=== PATIENT | male | born 1990 | race Caucasian/White ===

== ENCOUNTER 2020-09-02 14:40 | Emergency (ER) | payer OTHER ==
[2020-09-02 14:48] VITALS: BP 133/83
--- NOTE | 2020-09-02 14:49 | ED Physician Documentation ---
PD HPI HEENT - Stated complaint Stated Complaint: OBJECT IN L EAR - Chief complaint Chief Complaint: Heent - History obtained from History obtained from: Patient - History of Present Illness Timing - onset: Today Timing - details: Abrupt onset (He was cleaning his ears with Q-tips and looked down afterward and saw the cotton part on the Q-tip was not present. He did not fully notice if it was there before that. Concern for foreign body in the ear canal. denies hearing deficit.) Location: Left ear Similar symptoms before: Has not had sx before Review of Systems Ears: denies: Loss of hearing, Ear pain, Drainage/discharge PD PAST MEDICAL HISTORY - Past Medical History HEENT: None - Present Medications Home Medications: Ambulatory Orders Medication Instructions Recorded Confirmed No Known Home Medications 09/02/20 09/02/20 - Allergies Allergies/Adverse Reactions: Allergies Allergy/AdvReac Type Severity Reaction Status Date / Time No Known Drug Allergies Allergy Verified 09/02/20 14:47 PD ED PE NORMAL - Vitals Vital signs reviewed: Yes - General General: Alert and oriented X 3, No acute distress, Well developed/nourished - HEENT HEENT: Ears normal (No foreign bodies seen on either ear canal. Eardrums are both intact without any erythema. No canal abrasions or abnormalities.), Moist mucous membranes Results - Vitals Vitals: Vital Signs - 24 hr 09/02/20 14:44 Temperature 36.7 C Heart Rate 73 Respiratory 16 Rate Blood Pressure 133/83 H O2 Saturation 99 Oxygen O2 Source Room air PD MEDICAL DECISION MAKING - ED course Complexity details: considered differential (no FB on exam), d/w patient Departure - Departure Disposition: 01 Home, Self Care Clinical Impression: No foreign body found on evaluation Condition: Stable Record reviewed to determine appropriate education?: Yes Comments: Nothing found in your ear canal on exam.
== END 2020-09-02 15:06 | disposition home or self-care (01) ==
LOC: ED 14:40
DX: Z03.89 Encounter for observation for other suspected diseases and conditions ruled out (principal)
CPT/HCPCS: 99281

== ENCOUNTER 2021-01-17 16:11 | Observation (INO) | payer OTHER ==
[2021-01-17 17:08] LABS: BASOPHILS % (AUTO) 0.4 %; EOSINOPHILS # (AUTO) 0.2 10^3/uL (0.0-0.7); HCT - HEMATOCRIT 41.4 % (42.0-52.0); HGB - HEMOGLOBIN 14.1 g/dL (14.0-18.0); MEAN CORPUSCULAR HEMOGLOBIN 30.1 pg (27.0-31.0); MEAN CORPUSCULAR HGB CONC 34.1 g/dL (32.0-36.0); MEAN CORPUSCULAR VOLUME 88.5 fL (80.0-94.0); MEAN PLATELET VOLUME 9.2 fL (7.4-11.4); MONOCYTES # (AUTO) 0.9 10^3/uL (0.0-1.0); MONOCYTES % (AUTO) 8.3 %; NEUTROPHILS # (AUTO) 7.9 10^3/uL (1.5-6.6); NEUTROPHILS % (AUTO) 70.9 %; PLT - PLATELET COUNT 247 10^3/uL (130-450); RED BLOOD COUNT 4.68 10^6/uL (4.70-6.10); RED CELL DISTRIBUTION WIDTH 11.9 % (12.0-15.0); WHITE BLOOD COUNT 11.2 x10^3/uL (4.8-10.8)
[2021-01-17 17:17] LABS: INR 1.3 (0.8-1.2); PT - PROTHROMBIN TIME 14.3 secs (9.9-12.6)
[2021-01-17 17:21] LABS: ALBUMIN 4.2 g/dL (3.2-5.5); ALBUMIN/GLOBULIN RATIO 1.1 (1.0-2.2); BILIRUBIN,TOTAL 1.4 mg/dL (0.2-1.0); CALCIUM 9.4 mg/dL (8.5-10.3); CREATININE 0.7 mg/dL (0.6-1.2); POTASSIUM 3.5 mmol/L (3.5-5.0); TOTAL PROTEIN 8.1 g/dL (6.7-8.2)
[2021-01-17 17:25] LABS: PARTIAL THROMBOPLASTIN TIME 30.1 secs (24.9-33.3)
--- NOTE | 2021-01-17 18:06 | ED Physician Documentation ---
History of Present Illness - Stated complaint Stated Complaint: CHILLS - Chief complaint Chief Complaint: Fever - History obtained from History obtained from: Patient - History of Present Illness Timing: Today Pain level max: 10 Pain level now: 10 - Additonal information Additional information: 30-year-old male presents to the emergency department with fever and right elbow pain. He was seen here earlier today and diagnosed with olecranon bursitis. This was incised and drained. When he returned home he started to develop fevers, body aches and chills. He states the pain is continually increasing to the right elbow as well. Denies any injury. Worse with movement, better with rest. Review of Systems Ten Systems: 10 systems reviewed and negative Constitutional: reports: Fever, Chills Respiratory: denies: Cough GI: denies: Nausea, Vomiting, Diarrhea Skin: denies: Rash Musculoskeletal: denies: Neck pain, Back pain Neurologic: denies: Headache PD PAST MEDICAL HISTORY - Past Medical History Past Medical History: Yes Cardiovascular: None Respiratory: None Neuro: None Endocrine/Autoimmune: None GI: None : None HEENT: None Psych: None Musculoskeletal: None Derm: None - Past Surgical History Past Surgical History: Yes General: Appendectomy HEENT: Tonsil/Adenoidectomy - Present Medications Home Medications: Ambulatory Orders Medication Instructions Recorded Confirmed cephALEXin [Keflex] 500 mg PO Q6H #28 cap 01/17/21 01/17/21 - Allergies Allergies/Adverse Reactions: Allergies Allergy/AdvReac Type Severity Reaction Status Date / Time No Known Drug Allergies Allergy Verified 01/17/21 16:31 - Social History Does the pt smoke?: No Smoking Status: Never smoker Does the pt drink ETOH?: No Does the pt have substance abuse?: No - Immunizations Immunizations are current?: Yes - POLST Patient has POLST: No PD ED PE NORMAL - Vitals Vital signs reviewed: Yes - General General: Alert and oriented X 3, Other (crying, breathing rapidly) - HEENT HEENT: PERRL, Moist mucous membranes - Neck Neck: Supple, no meningeal sign - Cardiac Cardiac: RRR, Strong equal pulses - Respiratory Respiratory: No respiratory distress, Clear bilaterally - Abdomen Abdomen: Soft, Non tender, Non distended - Derm Derm: Warm and dry - Extremities Extremities: Other (Erythema around the olecranon of the right elbow. Unable to move the right elbow. Neurovascularly intact.) - Neuro Neuro: Alert and oriented X 3 - Psych Psych: Normal mood, Normal affect Results - Vitals Vitals: Vital Signs - 24 hr 01/17/21 01/17/21 16:31 17:11 Temperature 39.3 C H Heart Rate 120 H 110 H Respiratory 20 22 Rate Blood Pressure 123/82 H 117/77 O2 Saturation 98 99 Oxygen O2 Source Room air - Labs Labs: Laboratory Tests 01/17/21 01/17/21 01/17/21 16:53 16:53 16:53 WBC 11.2 H RBC 4.68 L Hgb 14.1 Hct 41.4 L MCV 88.5 MCH 30.1 MCHC 34.1 RDW 11.9 L Plt Count 247 MPV 9.2 Neut # (Auto) 7.9 H Lymph # (Auto) 2.0 [place] # (Auto) 0.9 Eos # (Auto) 0.2 Baso # (Auto) 0.0 Absolute Nucleated RBC 0.00 Nucleated RBC % 0.0 ESR PT 14.3 H INR 1.3 H APTT 30.1 Sodium 137 Potassium 3.5 Chloride 98 L Carbon Dioxide 27 Anion Gap 12.0 BUN 6 Creatinine 0.7 Estimated GFR (MDRD) 133 Glucose 98 Lactic Acid Calcium 9.4 Total Bilirubin 1.4 H AST 25 ALT 29 Alkaline Phosphatase 74 C-Reactive Protein Total Protein 8.1 Albumin 4.2 Globulin 3.9 Albumin/Globulin Ratio 1.1 Lipase 23 01/17/21 01/17/21 01/17/21 16:53 16:53 17:01 WBC RBC Hgb Hct MCV MCH MCHC RDW Plt Count MPV Neut # (Auto) Lymph # (Auto) [place] # (Auto) Eos # (Auto) Baso # (Auto) Absolute Nucleated RBC Nucleated RBC % ESR 25 H PT INR APTT Sodium Potassium Chloride Carbon Dioxide Anion Gap BUN Creatinine Estimated GFR (MDRD) Glucose Lactic Acid 1.4 Calcium Total Bilirubin AST ALT Alkaline Phosphatase C-Reactive Protein 3.8 H Total Protein Albumin Globulin Albumin/Globulin Ratio Lipase - Rads (name of study) R elbow xray Radiology: Prelim report reviewed, EMP read contemporaneously, See rad report (normal) PD MEDICAL DECISION MAKING - ED course Complexity details: reviewed old records, reviewed results, re-evaluated patient, considered differential, d/w patient, d/w family, d/w [facility] consultant ED course: 30-year-old male with right elbow pain. Seen here earlier today and diagnosed with olecranon bursitis, incision and drainage was performed. He went home developed high spiking fevers, body aches, chills and increasing pain. Now unable to move the elbow. Discussed the case with Dr. Oconnor, orthopedics who will consult on the patient. Recommends observation with IV antibiotics overnight and see how the patient does in the morning. Discussed the case with the hospitalist, Dr. Massey who accepts. This document was made in part using voice recognition software. While efforts are made to proofread this document, sound alike and grammatical errors may occur. Departure - Departure Disposition: ED Place in Observation Clinical Impression: Olecranon bursitis of right elbow, SIRS (systemic inflammatory response syndrome) Fever Qualifiers: Fever type: unspecified Qualified Code(s): R50.9 - Fever, unspecified Condition: Stable Discharge Date/Time: 01/17/21 19:30
[2021-01-17] MEDS ORDERED: HYDROmorphone 1 MG/ML CARPUJECT IVP STA (18:11)
[2021-01-17] MEDS ORDERED: VANCOMYCIN INJ 1 GM in SODIUM CHLORIDE 0.9% 500 ML IV STA (18:12)
[2021-01-17] MEDS ORDERED: cefTRIAXone 1 GM VIAL IVP STA (18:12)
[2021-01-17] MEDS ORDERED: SODIUM CHLORIDE 0.9% 1,000 ML IV STA ×2 (18:12)
[2021-01-17] MEDS ORDERED: KETOROLAC 30 MG/ML VIAL IVP STA (18:14)
[2021-01-17] MEDS ORDERED: VANCOMYCIN INJ 1.75 GM in SODIUM CHLORIDE 0.9% 500 ML IV STA (18:22)
[2021-01-17] MEDS ORDERED: SODIUM CHLORIDE FLUSH 0.9% 10 ML SYRINGE IVP PRN (18:29)
[2021-01-17] MEDS ORDERED: oxyCODONE 5 MG TABLET PO PRN (18:29)
[2021-01-17] MEDS ORDERED: ACETAMINOPHEN 325 MG TABLET PO PRN (18:29)
[2021-01-17] MEDS ORDERED: ONDANSETRON ODT 4 MG TABLET TL PRN (18:29)
--- NOTE | 2021-01-17 19:27 | XRAY Report ---
PROCEDURE: Elbow 2 View RT INDICATIONS: Right elbow pain, swelling TECHNIQUE: 2 views of the elbow were acquired. COMPARISON: None FINDINGS: Bones: No fractures or dislocations. No suspicious bony lesions. Soft tissues: No elbow joint effusion. No suspicious soft tissue calcifications. IMPRESSION: Normal exam. Reviewed by: Gabe Irwin MD on 01/17/2021 7:26 PM PDT Approved by: Gabe Irwin MD on 01/17/2021 7:26 PM PDT Station ID: [id number]
[2021-01-17 20:03] LABS: B. PARAPERTUSSIS- RESP PCR PAN NOT DETECTED; B. PERTUSSIS- RESP PCR PANEL NOT DETECTED; C. PNEUMONIAE- RESP PCR PANEL NOT DETECTED; CORONAVIRUS 229E-RESP PCR NOT DETECTED; CORONAVIRUS HKU1-RESP PCR NOT DETECTED; CORONAVIRUS NL63-RESP PCR NOT DETECTED; CORONAVIRUS OC43-RESP PCR NOT DETECTED; HUMAN METAPNEUMOVIRUS NOT DETECTED; INFLUENZA A- RESP PCR PANEL NOT DETECTED; INFLUENZA B - RESP PCR PANEL NOT DETECTED; M. PNEUMONIAE- RESP PCR PANEL NOT DETECTED; PARAINFLUENZA VIRUS 1 NOT DETECTED; PARAINFLUENZA VIRUS 2 NOT DETECTED; PARAINFLUENZA VIRUS 3 NOT DETECTED; PARAINFLUENZA VIRUS 4 NOT DETECTED; RHINOVIRUS/ENTEROVIRUS NOT DETECTED; RSV- RESP PCR PANEL NOT DETECTED; SARS-CoV-2 -RESP PCR PANEL NOT DETECTED
--- NOTE | 2021-01-17 21:03 | HISTORY & PHYSICAL EXAMINATION ---
Chief Complaint - Chief Complaint Chief Complaint: right elbow pain History of Present Illness - Admitted From Admitted From:: home - History Obtained From Records Reviewed: [facility] History obtained from: patient Exam Limitations: none - History of Present Illness HPI Comment/Other: The patient presented to the emergency room today because of severe, throbbing, hot right elbow pain. It was coming up the arm and radiated across his right chest. But he tells me that for the last few weeks he has been plagued by another problem that bothers him more. He says that approximately 5 to 6 weeks ago he started having severe chills and fever. It would wake him up at 2 or 3 in the morning with cold sweats that were soaking the bed and would have to go soak in a hot tub to warm up and to stop shaking. 4 hours in the day his entire body would hurt with joint pain. There is no joint effusions or swelling. He always has earwax in his ears and it was associated with occasional right ear pain. No antecedent surgical procedures, dental procedures, illnesses. He is sexually active with his first partner, his , since August of this year. She has HSV-2 but no active infection that he is aware of. He denies sore throat, eustachian tube dysfunction, chest pain. The only time he felt achiness was when he tried to swallow. Then he would feel the lymphadenopathy in his throat come up and down. Because he has had his tonsils taken out, he always feels like he has enlarged submandibular glands. Those were much larger than usual.. He vapes and has an occasional dry cough. No hemoptysis. No shortness of breath. No edema. No palpitations. He has had no weight changes with this even though appetite was diminished. He had no abdominal pain, diarrhea, or change in bowel habits. No urgency, frequency, dysuria, hematuria or hematospermia. No inguinal pain, groin pain or testicular pain. After a week or so he realized that every time he put his left arm down against his body, his left axilla hurt. So on self examination of his axilla, he felt a ball of lymph nodes that were tender. He then realized that he had tender lymph nodes in the supraclavicular fossa, left lateral neck. He does have cats. But he says that none of them have scratched his hands and he had no left hand or left arm open lesions during this time. 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 He has had no recent travel. He tried to see the [employer] base medical providers for work-up and they checked him for Covid. He was exasperated because he knew his symptoms were not of Covid. But once he was Covid negative they stopped doing a work-up. He thinks that some of the symptoms have diminished in intensity and severity over the last week. But yesterday he developed swelling of his right olecranon bursa. He was putting his arm down on a desk at work. The pain then developed into a large swollen elbow joint that was red, hot, and he started having a recurrence of his fever. So he came to the emergency room this morning where he had it drained by Dr. Sapp. No fluid analysis was sent. He had immediate relief of pain and pressure. Was sent home on Keflex. But when he went back home, the fevers became of higher intensity, started developing body aches and chills. The right elbow was getting swollen again. It was a throbbing pulsating pain. Anything that touched it was agonizing. He admits that he is terrified of needles. Just having the experience this morning of having the joint drained, and an IV placed, and having blood draws has been a horrifying experience for him. He knows he is being ridiculous and should be tougher but he finds all of this very difficult to go through. He says that he wants to apologize to the emergency room physician this morning because he was literally crying when they were trying to drain the joint. With Dr. Phillip's examination of his second visit in the emergency room, temperature was 102.7. Heart rate 120. Respirations 20. Blood pressure 123/82. 98% on room air. He had a swollen right elbow but otherwise unremarkable exam. White cell count was 11,000 this morning and is 11,000 this afternoon. Sedimentation rate is 25. Lactic acid 1.4. INR is slightly elevated at 1.3. Electrolytes and liver enzymes are normal except for total bili of 1.4. The elb ow film has no fractures or dislocations. No suspicious bony lesions. There is no elbow joint effusion. No suspicious soft tissue calcifications. We are now admitting him for olecranon bursitis with possible joint infection. Orthopedics has been called by the emergency room provider and will be seeing the patient tomorrow morning in consultation. History - Past Medical History Cardiovascular: reports: None Respiratory: reports: None Neuro: reports: None Endocrine/Autoimmune: reports: None GI: reports: None : reports: None HEENT: reports: None Psych: reports: None Musculoskeletal: reports: None Derm: reports: None MRSA Hx?: No - Past Surgical History General: reports: Appendectomy HEENT: reports: Tonsil/Adenoidectomy - Family & Social History Family History Comment/Other: Mom and dad are healthy. Alive and well. No major medical illnesses. Siblings are healthy. No children Living arrangement: At home Living Situation: With spouse/s.o. Social History Notes: He is from [place] outside [place]. Has been in the [employer] for 7 years. Smoked for the first 2 years while in the [employer] and smoked half a pack to a pack per day but only did it for 2 years. Then he quit smoking and has been vaping since. He drinks rarely. Has no history of alcohol abuse. He has no history of recreational substance abuse in the form of heroin, cocaine, LSD, methamphetamines. He is to his first since August 2020. She is his first sexual partner. - Substance History Use: Uses substance without health or social issues: Inhalant Abuse: Recurrent use of substance despite neg consequences: NONE Dependence: Experiences withdrawal or developed tolerances: NONE - POLST Patient has POLST: No POLST Status: Full Code Meds/Allgy - Home Medications Home Medications: Ambulatory Orders Medication Instructions Recorded Confirmed cephALEXin [Keflex] 500 mg PO Q6H #28 cap 01/17/21 01/17/21 - Allergies Allergies/Adverse Reactions: Allergies Allergy/AdvReac Type Severity Reaction Status Date / Time No Known Drug Allergies Allergy Verified 01/17/21 16:31 Review of Systems - Constitutional Constitutional: reports: Fatigue, Fever, Chills, Malaise, Weakness, Poor appetite, Diaphoresis, Night sweats - Eyes Eyes: denies: Pain, Irritation, Amaurosis, Field loss, Vision loss - Ears, Nose & Throat Ears, Nose & Throat: reports: Ear pain, Other (Sore neck, not sore throat. With lymphadenopathy.). denies: Hearing loss, Hearing aids, Tinnitus, Vertigo, Nasal pain, Nasal discharge, Nasal obstruction, Nasal congestion, Postnasal drainage, Dentures - Cardiovascular Cariovascular: reports: Chest pain (Starting yesterday with radiation from the right elbow.). denies: Irregular heart rate, Palpitations, Edema, Lightheadedness, Syncope, Exertional dyspnea, Decr. exercise tolerance, Orthopnea - Respiratory Respiratory: reports: Cough (Mild and daily, associated with his vaping. He last vape 5 days ago). denies: Sputum production, Wheezing, Snoring, Hemoptysis, Orthopnea, SOB at rest, SOB with exertion, Apnea, Stridor, Pleuritic pain - Gastrointestinal Gastrointestinal: reports: Poor appetite. denies: Abdominal pain, Abdominal distention, Constipation, Diarrhea, Change in bowel habits, Nausea, Vomiting, Coffee grounds emesis, Reflux/heartburn, Bloating - Genitourinary Genitourinary: denies: Dysuria, Frequency, Urgency, Hematuria, Incontinence, Flank pain, Nocturia, Urethral discharge, Sexual dysfunction - Musculoskeletal Musculoskeletal: reports: Muscle pain (Muscle aches and joint aches associated with this most recent fevers and chills and sweats), Back pain (Back pain is chronic and intermittent due to his job. But does not slow him down. That is be en ongoing for years.), Muscle aches, Joint pain. denies: Stiffness, Limited range of motion, Muscle weakness, Joint swelling - Integumentary Integumentary: denies: Rash, Pruritis, Lesions, Lumps, Pigment changes - Neurological Neurological: denies: General weakness, Focal weakness, Headache, Dizziness, Numbness, Memory problems, Pre-existing deficit, Seizures, Incoordination - Psychiatric Psychiatric: reports: Anxiety. denies: Depression, Suicidal, Delusions, Hallucinations, Homicidal - Endocrine Endocrine: denies: Polyuria, Polydypsia, Polyphagia, Intolerance to cold - Hematologic/Lymphatic Hematologic/Lymphatic: reports: Lymphadenopathy (Anterior cervical neck chain, left supraclavicular fossa, left axilla). denies: Anemia, Bruising, Petechiae, Blood clots Prior Level of Functionality: Completely independent with activities of daily living. He works full-time. Drives a car. Pays bills. Has no need of durable medical equipment. Exam - Vital Signs Reviewed Vital Signs: Yes Vital Signs: Vital Signs x48h Temp Pulse Pulse Resp BP BP Pulse Ox 01/17/21 19:33 38.4 C H 86 18 109/71 96 01/17/21 19:00 39.2 C H 92 14 107/73 94 01/17/21 17:11 110 H 22 117/77 99 01/17/21 16:31 39.3 C H 120 H 20 123/82 H 98 - Physical Exam General Appearance: positive: No acute distress, Alert, Other (5 foot 9 inch white male who is 65.7 kg. Overall impression of him is that of a very lean, lanky young white male, wearing dark square glasses. Watching TV. Animated speaker.) Eyes Bilateral: positive: PERRL, EOMI ENT: positive: Pharynx nml, Oral lesions (The tip of his tongue has a ridge of bullae. The distal tip of his tongue on the top has a 1 cm canker sore.) Neck: positive: Thyroid nml, Lymphadenopathy (R), Lymphadenopathy (L). negative: No JVD, Stiff neck Respiratory: positive: Chest non-tender, No respiratory distress. negative: Wheezes, Rales, Rhonchi Cardiovascular: positive: Regular rate & rhythm, No murmur, No gallop, Other (The left axilla does have a 3 cm area of adenopathy high up in the axillary chain. But I am not finding any supraclavicular adenopathy, or pre- /postauricular adenopathy or anterior chest wall adenopathy.) Peripheral Pulses: positive: 1+ Abdomen: positive: Non-tender, No organomegaly, Nml bowel sounds, No distention Back: negative: CVA tenderness (R), CVA tenderness (L) Skin: positive: Color nml, No rash, Warm, Dry, Other (no petechie of scalp, skin of body, finger nails). negative: Diaphoresis, Skin rash Extremities: positive: Non-tender, Full ROM, Nml appearance, Other (The only joint that appears swollen and tender is the right olecranon bursa that has a white bandage, serous bloody fluid soaking into the bandage. The overall joint is edematous, hot, painful with flexion and extension.) Neurologic/Psychiatric: positive: Oriented x3, CN's nml (2-12), Motor nml, Sensation nml Conclusion/Plan - Problem List (1) Septic olecranon bursitis of right elbow Conclusion/Plan: At this point that is the tentative an initial diagnosis for this gentleman. We cannot tell if the infection is early enough that true sepsis with hemodynamic instability has not occurred. But he has a fever, elevated white cell count. Unfortunately the fluid was not sent off this morning.Blood cultures were done with his second ER visit. Plan: Inpatient admission Orthopedic consultation in the morning Empiric MRSA coverage with vancomycin Daily CBCs, sed rate, C-reactive protein The patient protest the latter part of this plan. He states that he really is just terrified of needles and would prefer us not to treat him by doing blood draws. I explained that is not how we do things. We are willing to negotiate and do the pros and cons for overall treatment plans, but he cannot tie our hands by picking and choosing what we can or cannot do with regards to his infection. Reluctantly he agrees to getting his blood drawn tomorrow. (2) Adenopathy Conclusion/Plan: Associated with fevers, chills, diffuse joint aches for 4 weeks duration, now partially resolved. I explained to him that we generate a differential diagnosis list. The top of my list, considering his age group and his new sexual activity with a partner that is HSV 2 positive, is a new viral infection. He was tested for mono this morning and that is negative. Nevertheless he could have had cytomegalovirus, or HSV-2 infection. Current exam does show residual adenopathy of the left axilla, canker sore of the tongue. He has subtle adenopathy of the upper anterior cervical chain but I think that is a chronic finding and not a new finding from him. I am not finding any other adenopathy. His white cell count is elevated but mainly with neutrophils. No lymphocytosis or monocytosis. I also explained he could have lymphoma, leukemia, cat scratch fever, or other infection. But the rest of his physical examination, and his CBC do not indicate that those are a possibility. Plan: Since it has been 4 weeks, and he still has lymphadenopathy of the left axilla, I will order a CT of the chest Check peripheral smear with pathology Check CMV antibodies and HSV-2 antibodies (3) Anxiety Conclusion/Plan: Almost a phobia about needles. He gets very animated with fast pressured speech just discussing blood draws and further work-up. On the one hand he states he is very unhappy that no one figured out what was wrong with him for those 4 weeks he was having fever, chills, night sweats but on the other hand he does not want blood draws. I told that it was up to him. He reluctantly states to go ahead and order things but may decline them depending on how high his anxiety is in the morning. (4) Engages in vaping Conclusion/Plan: I have asked him to stop completely. He protested says that he is regards it is kind of a safe activity. I told him that no inhalation on a regular basis of any sepsis is considered safe. Complications could be lipoid pneumonitis depending on the inhalation substance. Nicotine dependence. Etc. - Lab Results Lab results reviewed: Yes Fish Bones: 01/17/21 16:53 01/17/21 16:53 - Diagnostic Imaging Results Diagnostic Imaging Results: positive: Final report reviewed Core Measures - Anticipated LOS I expect patient to be DC'd or transferred within 96 hours.: Yes - DVT/VTE - Prophylaxis VTE/DVT Device ordered at admit?: Yes
[2021-01-17 22:08] LABS: BILIRUBIN,URINE NEGATIVE (NEGATIVE); GLUCOSE, URINE (UA) NEGATIVE (NEGATIVE); KETONES,URINE (UA) 15 mg/dL (NEGATIVE); LEUKOCYTE ESTERASE, URINE NEGATIVE (NEGATIVE); NITRITE,URINE NEGATIVE (NEGATIVE); OCCULT BLOOD,URINE NEGATIVE (NEGATIVE); PROTEIN,URINE NEGATIVE (NEGATIVE); UROBILINOGEN,URINE 1 (NORMAL) E.U./dL (NORMAL)
[2021-01-17 22:09] LABS: CLARITY,URINE CLEAR (CLEAR)
[2021-01-17] MEDS: SODIUM CHLORIDE FLUSH 0.9% 10 ML SYRINGE IVP SCH (23:52)
[2021-01-18] MEDS ORDERED: WATER FOR INJECTION,STERILE 10 ML MC ONE (03:14)
[2021-01-18] MEDS ORDERED: VANCOMYCIN INJ 1 GM, VANCOMYCIN INJ 250 MG in SODIUM CHLORIDE 0.9% 250 ML IV SCH (04:00)
[2021-01-18 05:09] LABS: BASOPHILS # (AUTO) 0.1 10^3/uL (0.0-0.1); BASOPHILS % (AUTO) 0.4 %; EOSINOPHILS # (AUTO) 0.5 10^3/uL (0.0-0.7); EOSINOPHILS % (AUTO) 4.5 %; HCT - HEMATOCRIT 37.5 % (42.0-52.0); HGB - HEMOGLOBIN 12.4 g/dL (14.0-18.0); LYMPHOCYTES # (AUTO) 2.5 10^3/uL (1.5-3.5); MEAN CORPUSCULAR HGB CONC 33.1 g/dL (32.0-36.0); MEAN CORPUSCULAR VOLUME 90.8 fL (80.0-94.0); MEAN PLATELET VOLUME 9.4 fL (7.4-11.4); MONOCYTES # (AUTO) 1.2 10^3/uL (0.0-1.0); MONOCYTES % (AUTO) 10.2 %; NEUTROPHILS # (AUTO) 7.6 10^3/uL (1.5-6.6); NEUTROPHILS % (AUTO) 63.5 %; PLT - PLATELET COUNT 223 10^3/uL (130-450); RED BLOOD COUNT 4.13 10^6/uL (4.70-6.10); RED CELL DISTRIBUTION WIDTH 11.8 % (12.0-15.0); WHITE BLOOD COUNT 11.9 x10^3/uL (4.8-10.8)
[2021-01-18 05:27] LABS: CALCIUM 8.3 mg/dL (8.5-10.3); CREATININE 0.6 mg/dL (0.6-1.2); CRP - C-REACTIVE PROTEIN 6.2 mg/dL (0-1.0); POTASSIUM 3.4 mmol/L (3.5-5.0)
[2021-01-18] MEDS ORDERED: POTASSIUM CHLORIDE 20 MEQ TABLET PO ONE (07:50)
--- NOTE | 2021-01-18 08:15 | PHARMACY PROGRESS NOTE ---
- Therapy Status Vancomycin regimen day #: 2 Therapy status: Awaiting steady state Basis for treatment: Empirical Treatment indication: SEPTIC BURSITIS Trough goal: 10-15 - JOSELYN Risk Risk level for Acute Kidney Injury: Low - Monitoring and Recommendation Clinical response to treatment: I&O Previous 24 hours 01/16/21 01/17/21 01/18/21 23:59 23:59 23:59 Intake Total 1870 250 Balance 1870 250 Lab Results 01/18/21 01/17/21 01/17/21 04:27 16:53 16:53 ESR 25 H BUN 9 6 Creatinine 0.6 0.7 Estimated GFR (MDRD) 159 133 Monitoring plan: Daily serum creatinine Next trough due prior to maintenance dose #: 5 Next trough due (date/time): 01/19 @ 1100 Areas for additional monitoring: IV to PO when appropriate, Therapy de- escalation based on culture results Pharmacy recommendation: Continue current regime
--- NOTE | 2021-01-18 08:29 | PHARMACY PROGRESS NOTE ---
- Best Possible Medication History Admit Date and Time: 01/17/21 1829 Processed by: Pharmacy Medication History completed: Yes Patient Interview: Pt interview ONLY source As the person ultimately responsible for medication therapy, providers are able to order a medication from an existing home medication list in [facility] via the "Reconcile Routine" prior to Confirmation of that medication by support technician. Such practice is discouraged except when the physician, in their clinical judgment, deems that a medical need exists for a medication without regard to previous use.
[2021-01-18] MEDS: SODIUM CHLORIDE FLUSH 0.9% 10 ML SYRINGE IVP SCH ×2 (08:47→17:28)
--- NOTE | 2021-01-18 09:08 | CT Report ---
PROCEDURE: CHEST WO INDICATIONS: lymphadenopathy TECHNIQUE: Noncontrast 5 mm thick sections acquired from the pulmonary apices to the posterior costophrenic angl es. 7 mm thick coronal and sagittal MIP reformats were then acquired. For radiation dose reduction, the following was used: automated exposure control, adjustment of mA and/or kV according to patient size. COMPARISON: FINDINGS: Image quality: Reduced by absence of intravenous contrast.. Lungs and pleura: No acute air space opacities. No pleural effusions or pneumothorax. Central and peripheral airways are patent and normal in caliber. Mediastinum: Heart size is normal. No pericardial effusion. No mediastinal adenopathy by size crit eria. Thoracic aorta and central pulmonary arteries are normal in size. Esophagus is normal in karen moo. No hiatal hernia. Bones and chest wall: No suspicious bony lesions. No vertebral body compression fractures. No axil marjorie or supraclavicular adenopathy by size criteria. The thyroid is normal in size and there are no incidental findings. Abdomen: Visualized upper abdominal solid organs and bowel loops appear normal in the absence of con trast. IMPRESSION: There is a single enlarged lymph node left axilla, measuring up to 1.9 x 2.8 cm, and no additional ad enopathy is seen elsewhere. Quality of visualization is somewhat limited by absence of intravenous contrast in terms of different iating normal blood vessels from lymph nodes within the mediastinum, but within the constraints of th is study no mediastinal or hilar adenopathy is found.. Reviewed by: Indra Jane MD on 01/18/2021 9:06 AM PDT Approved by: Indra Jane MD on 01/18/2021 9:06 AM PDT Station ID: [id number]
--- NOTE | 2021-01-18 10:08 | PROVIDER PROGRESS NOTE ---
Assessment/Plan - Problem List (1) Septic olecranon bursitis of right elbow Assessment/Plan: 01/18 pt report he feel better. his temperature is down to 38.1 lower degree of fever from 39.3 degree at admission. erythema is reduced, present mild swelling at posterior area of right olecranon. pt denies pain when he had full ROM at right arm. Xray of right elbow show unremarkable. blood culture is still pend ing. WBC and ESR show still slightly elevated as well. continue Vancomycin, continue consult with orthopedics, he will see pt on this afternoon. continue vital and lab monitor (2) Adenopathy Conclusion/Plan: 01/18 CT did not show other adenopathy except single large 1.9x2.8 cm lymphadenopathy of the left axilla. pt had infection at right bursitis not left but pt had single large lymphadenopathy of the left axilla. pt report his large lymphadenopathy of the left axilla was much shrink, even yesterday he can touch and feel the large lymph node at left axilla. today it is very difficult to feel any lymphadenopathy at the left axilla. It appear reactive lymphadenopathy, such as virus infection, check CMV antibodies and HSV-2 antibodies are pending, and Check peripheral smear with pathology for other pathogen as well, add mononucleosis test. (3) Anxiety Conclusion/Plan: Almost a phobia about needles. pt feel better. explained and answered all his questions to help relief his anxiety. (4) Engages in vaping Conclusion/Plan: advise pt quit - Current Meds Current Meds: Current Medications Generic Name Dose Route Start Last Admin Trade Name Fidelia PRN Reason Stop Dose Admin Acetaminophen 650 mg 01/17/21 18:29 01/18/21 03:00 Acetaminophen 325 Mg Tablet PO 650 mg Q4HR PRN Administration Pain 1 to 4 Sodium Chloride 10 ml 01/17/21 18:29 01/18/21 03:29 Sodium Chloride Flush 0.9% 10 Ml Syringe IVP 10 ml PRN PRN Administration NEEDED PER PROVIDER ORDERS Sodium Chloride 10 ml 01/18/21 01:00 01/18/21 08:47 Sodium Chloride Flush 0.9% 10 Ml Syringe IVP 10 ml 0100,0900,1700 VERA Administration - Lab Result Fish Bone Diagrams: 01/18/21 04:27 01/18/21 04:27 - Additional Planning My Orders: My Active Orders 01/18/21 09:24 Miscellaenous Nursing Order [RC] ONCE 01/18/21 Lunch Regular Diet [DIET] Subjective - Subjective Patient Reports: Feeling Better Objective Vital Signs: Vital Signs - 24 hr 01/17/21 01/17/21 01/17/21 16:31 17:11 19:00 Temperature 39.3 C H 39.2 C H Heart Rate 120 H 110 H 92 Heart Rate [ Brachial] Respiratory 20 22 14 Rate Blood Pressure 123/82 H 117/77 107/73 Blood Pressure [Left Brachial artery] Blood Pressure [Right Brachial artery] O2 Saturation 98 99 94 01/17/21 01/17/21 01/18/21 19:33 23:26 03:05 Temperature 38.4 C H 37.0 C 37.4 C Heart Rate Heart Rate [ 86 91 Brachial] Respiratory 18 18 16 Rate Blood Pressure Blood Pressure 109/71 106/64 [Left Brachial artery] Blood Pressure [Right Brachial artery] O2 Saturation 96 100 01/18/21 01/18/21 01/18/21 03:45 05:08 07:23 Temperature 38.1 C H 37.7 C 36.9 C Heart Rate Heart Rate [ 93 74 Brachial] Respiratory 16 16 Rate Blood Pressure Blood Pressure 100/68 [Left Brachial artery] Blood Pressure 100/64 [Right Brachial artery] O2 Saturation 98 100 Oxygen O2 Source Room air I&O (Last 24 Hrs): Intake and Output Totals x24h 01/16/21 01/17/21 01/18/21 23:59 23:59 23:59 Intake Total 1870 490 Balance 1870 490 General: Alert, Oriented x3, Cooperative, No acute distress HEENT: Atraumatic Neck: Supple Lymphatic: other (very slight feeling of left axilla node tender, and slight left neck node tender) Neuro: Alert, Non Focal, Oriented Times 3 Cardiovascular: Regular rate, Normal S1, Normal S2 Respiratory: Chest non-tender, No respiratory distress, Breath sounds nml Abdomen: Normal bowel sounds, Soft Extremities: Normal pulses - Results Results: Laboratory Results Specimen Type BLOOD 01/18/21 04:27 WBC 11.9 x10^3/uL (4.8-10.8) H 01/18/21 04:27 RBC 4.13 10^6/uL (4.70-6.10) L 01/18/21 04:27 Hgb 12.4 g/dL (14.0-18.0) L 01/18/21 04:27 Hct 37.5 % (42.0-52.0) L 01/18/21 04:27 MCV 90.8 fL (80.0-94.0) 01/18/21 04:27 MCH 30.0 pg (27.0-31.0) 01/18/21 04:27 MCHC 33.1 g/dL (32.0-36.0) 01/18/21 04:27 RDW 11.8 % (12.0-15.0) L 01/18/21 04:27 Plt Count 223 10^3/uL (130-450) 01/18/21 04:27 MPV 9.4 fL (7.4-11.4) 01/18/21 04:27 Neut # (Auto) 7.6 10^3/uL (1.5-6.6) H 01/18/21 04:27 Lymph # (Auto) 2.5 10^3/uL (1.5-3.5) 01/18/21 04:27 [place] # (Auto) 1.2 10^3/uL (0.0-1.0) H 01/18/21 04:27 Eos # (Auto) 0.5 10^3/uL (0.0-0.7) 01/18/21 04:27 Baso # (Auto) 0.1 10^3/uL (0.0-0.1) 01/18/21 04:27 Absolute Nucleated RBC 0.00 x10^3/uL 01/18/21 04:27 Nucleated RBC % 0.0 /100WBC 01/18/21 04:27 ESR 25 mm/Hr (0-15) H 01/17/21 16:53 PT 14.3 secs (9.9-12.6) H 01/17/21 16:53 INR 1.3 (0.8-1.2) H 01/17/21 16:53 APTT 30.1 secs (24.9-33.3) 01/17/21 16:53 Sodium 138 mmol/L (135-145) 01/18/21 04:27 Potassium 3.4 mmol/L (3.5-5.0) L 01/18/21 04:27 Chloride 107 mmol/L (101-111) 01/18/21 04:27 Carbon Dioxide 24 mmol/L (21-32) 01/18/21 04:27 Anion Gap 7.0 (6-13) 01/18/21 04:27 BUN 9 mg/dL (6-20) 01/18/21 04:27 Creatinine 0.6 mg/dL (0.6-1.2) 01/18/21 04:27 Estimated GFR (MDRD) 159 (>89) 01/18/21 04:27 Glucose 133 mg/dL (70-100) H 01/18/21 04:27 Lactic Acid 1.4 mmol/L (0.5-2.2) 01/17/21 17:01 Calcium 8.3 mg/dL (8.5-10.3) L 01/18/21 04:27 Total Bilirubin 1.4 mg/dL (0.2-1.0) H 01/17/21 16:53 AST 25 IU/L (10-42) 01/17/21 16:53 ALT 29 IU/L (10-60) 01/17/21 16:53 Alkaline Phosphatase 74 IU/L (42-121) 01/17/21 16:53 C-Reactive Protein 6.2 mg/dL (0-1.0) H 01/18/21 04:27 Total Protein 8.1 g/dL (6.7-8.2) 01/17/21 16:53 Albumin 4.2 g/dL (3.2-5.5) 01/17/21 16:53 Globulin 3.9 g/dL (2.1-4.2) 01/17/21 16:53 Albumin/Globulin Ratio 1.1 (1.0-2.2) 01/17/21 16:53 Lipase 23 U/L (22-51) 01/17/21 16:53 Urine Color YELLOW 01/17/21 21:54 Urine Clarity CLEAR (CLEAR) 01/17/21 21:54 Urine pH 8.0 PH (5.0-7.5) H 01/17/21 21:54 Ur Specific [place] 1.020 (1.002-1.030) 01/17/21 21:54 Urine Protein NEGATIVE mg/dL (NEGATIVE) 01/17/21 21:54 Urine Glucose (UA) NEGATIVE mg/dL (NEGATIVE) 01/17/21 21:54 Urine Ketones 15 mg/dL (NEGATIVE) H 01/17/21 21:54 Urine Occult Blood NEGATIVE (NEGATIVE) 01/17/21 21:54 Urine Nitrite NEGATIVE (NEGATIVE) 01/17/21 21:54 Urine Bilirubin NEGATIVE (NEGATIVE) 01/17/21 21:54 Urine Urobilinogen 1 (NORMAL) E.U./dL (NORMAL) 01/17/21 21:54 Ur Leukocyte Esterase NEGATIVE (NEGATIVE) 01/17/21 21:54 Ur Microscopic Review NOT INDICATED 01/17/21 21:54 Urine Culture Comments NOT INDICATED 01/17/21 21:54 Nasal Adenovirus (PCR) NOT DETECTED 01/17/21 19:05 Nasal B. parapertussis DNA (PCR) NOT DETECTED 01/17/21 19:05 Nasal Coronavir 229E PCR NOT DETECTED 01/17/21 19:05 Nasal Coronavir HKU1 PCR NOT DETECTED 01/17/21 19:05 Nasal Coronavir NL63 PCR NOT DETECTED 01/17/21 19:05 Nasal Coronavir OC43 PCR NOT DETECTED 01/17/21 19:05 Nasal Enterovir/Rhinovir PCR NOT DETECTED 01/17/21 19:05 Nasal Influenza B PCR NOT DETECTED 01/17/21 19:05 Nasal Influenza A PCR NOT DETECTED 01/17/21 19:05 Nasal Parainfluen 1 PCR NOT DETECTED 01/17/21 19:05 Nasal Parainfluen 2 PCR NOT DETECTED 01/17/21 19:05 Nasal Parainfluen 3 PCR NOT DETECTED 01/17/21 19:05 Nasal Parainfluen 4 PCR NOT DETECTED 01/17/21 19:05 Nasal RSV (PCR) NOT DETECTED 01/17/21 19:05 Nasal B.pertussis DNA PCR NOT DETECTED 01/17/21 19:05 Nasal C.pneumoniae (PCR) NOT DETECTED 01/17/21 19:05 Paul Human Metapneumo PCR NOT DETECTED 01/17/21 19:05 Nasal M.pneumoniae (PCR) NOT DETECTED 01/17/21 19:05 Nasal SARS-CoV-2 (PCR) NOT DETECTED 01/17/21 19:05 ABX Reporting Has patient been on IV antibiotics over the past 48 hours?: Yes Current Medications - Current Medications Current Medications: Active Medications Acetaminophen (Acetaminophen 325 Mg Tablet) 650 mg PO Q4HR PRN PRN Reason: Pain 1 to 4 Last Admin: 01/18/21 03:00 Dose: 650 mg Documented by: Vancomycin HCl 1 gm/Vancomycin HCl 250 mg/ Sodium Chloride 250 mls @ 167 mls/hr IV Q8H VERA Ondansetron HCl (Ondansetron Odt 4 Mg Tablet) 4 mg TL Q6HR PRN PRN Reason: Nausea / Vomiting Oxycodone HCl (Oxycodone 5 Mg Tablet) 5 mg PO Q4HR PRN PRN Reason: Pain 5 to 7 Sodium Chloride (Sodium Chloride Flush 0.9% 10 Ml Syringe) 10 ml IVP PRN PRN PRN Reason: NEEDED PER PROVIDER ORDERS Last Admin: 01/18/21 03:29 Dose: 10 ml Documented by: Sodium Chloride (Sodium Chloride Flush 0.9% 10 Ml Syringe) 10 ml IVP 0100,0900,1700 VERA Last Admin: 01/18/21 08:47 Dose: 10 ml Documented by: Multivitamin [Theragran] 1 each PO DAILY 01/18/21 diphenhydrAMINE [Benadryl] 25 mg PO BID PRN 01/18/21
[2021-01-18 10:56] LABS: INFECTIOUS MONONUCLEOSIS NEGATIVE (Negative)
[2021-01-18] MEDS: VANCOMYCIN INJ 1 GM, VANCOMYCIN INJ 250 MG in SODIUM CHLORIDE 0.9% 250 ML IV SCH ×2 (12:09→20:04)
--- NOTE | 2021-01-18 14:57 | CONSULTATION NOTE ---
Referring Provider Name of Referring Provider:: Drs. Massey, Noe Consult Date: 01/17/21 Chief Complaint - Chief Complaint Chief Complaint: Pain, swelling and redness right elbow x2 days History of Present Illness - History Obtained From Records Reviewed: Yes History obtained from: Patient Exam Limitations: None - History of Present Illness HPI Comment/Other: This is a 30-year-old man with a history of placing his right elbow on a hard surface when driving but no history of injury to right elbow otherwise. He did have a febrile illness about 6 weeks ago but none recently until about 2 days ago when he developed redness, swelling and pain to the posterior aspect of the right elbow, making it difficult to put any pressure to the posterior olecranon region and making it difficult to move right elbow. He denies any cut or penetrating injury, no previous injections or removal of fluid until yesterday when he was seen in the emergency room with increasing symptoms. He was seen by Dr. Mckeon who did a small incision and placed a pack into his olecranon bursa right elbow, send him home on antibiotics. He returned the same day and saw Dr. Phillip who noted that his symptoms had worsened including fever and increased pain to right elbow. He was noted to have an elevated white blood cell count and was admitted to the medical service with orthopedic consultation. He has been on vancomycin and has improved since admission, not able to move his right elbow much better but still having localized discomfort with any pressure to the right olecranon. He denies current fever or chills. History - Past Medical History Cardiovascular: reports: None Respiratory: reports: None Neuro: reports: None Endocrine/Autoimmune: reports: None GI: reports: None : reports: None HEENT: reports: None Psych: reports: None Musculoskeletal: reports: None Derm: reports: None MRSA Hx?: No - Past Surgical History General: reports: Appendectomy HEENT: reports: Tonsil/Adenoidectomy - Family & Social History Family History Comment/Other: Mom and dad are healthy. Alive and well. No major medical illnesses. Siblings are healthy. No children Living arrangement: At home Living Situation: With spouse/s.o. Social History Notes: He is from a [place] town outside [facility]. Has been in the [place] for 7 years. Smoked for the first 2 years while in the [place] and smoked half a pack to a pack per day but only did it for 2 years. Then he quit smoking and has been vaping since. He drinks rarely. Has no history of alcohol abuse. He has no history of recreational substance abuse in the form of heroin, cocaine, LSD, methamphetamines. He is to his first since August 2020. She is his first sexual partner. - Substance History Use: Uses substance without health or social issues: Inhalant Abuse: Recurrent use of substance despite neg consequences: NONE Dependence: Experiences withdrawal or developed tolerances: NONE - POLST Patient has POLST: No POLST Status: Full Code Meds/Allgy - Home Medications Home Medications: Ambulatory Orders Medication Instructions Recorded Confirmed Multivitamin [Theragran] 1 each PO DAILY 01/18/21 01/18/21 diphenhydrAMINE [Benadryl] 25 mg PO BID PRN 01/18/21 01/18/21 - Allergies Allergies/Adverse Reactions: Allergies Allergy/AdvReac Type Severity Reaction Status Date / Time No Known Drug Allergies Allergy Verified 01/17/21 16:31 Exam - Vital Signs Vital Signs: Vital Signs x48h Temp Pulse Resp BP BP Pulse Ox 01/18/21 12:29 37.1 C 80 16 107/67 100 01/18/21 07:23 36.9 C 74 16 100/68 100 - Physical Exam General Appearance: positive: No acute distress Peripheral Pulses: positive: 2+ Extremities: negative: Other (Right elbow with good range of motion without pain but not full range of motion. He has mild redness about the right olecranon. There is no joint effusion but there is clear drainage from the olecranon bursa, small amount.) Neurologic/Psychiatric: positive: Oriented x3, Motor nml, Sensation nml Conclusion and Plan - Lab Results Laboratory Results 01/18/21 04:27: Infectious [place] Assay NEGATIVE 01/18/21 04:27: Specimen Type BLOOD 01/18/21 04:27: Sodium 138, Potassium 3.4 L, Chloride 107, Carbon Dioxide 24, Anion Gap 7.0, BUN 9, Creatinine 0.6, Estimated GFR (MDRD) 159, Glucose 133 H, Calcium 8.3 L, C-Reactive Protein 6.2 H 01/18/21 04:27: WBC 11.9 H, RBC 4.13 L, Hgb 12.4 L, Hct 37.5 L, MCV 90.8, MCH 30.0, MCHC 33.1, RDW 11.8 L, Plt Count 223, MPV 9.4, Neut # (Auto) 7.6 H, Lymph # (Auto) 2.5, [place] # (Auto) 1.2 H, Eos # (Auto) 0.5, Baso # (Auto) 0.1, Absolute Nucleated RBC 0.00, Nucleated RBC % 0.0 01/17/21 21:54: Urine Color YELLOW, Urine Clarity CLEAR, Urine pH 8.0 H, Ur Specific [place] 1.020, Urine Protein NEGATIVE, Urine Glucose (UA) NEGATIVE, Urine Ketones 15 H, Urine Occult Blood NEGATIVE, Urine Nitrite NEGATIVE, Urine Bilirubin NEGATIVE, Urine Urobilinogen 1 (NORMAL), Ur Leukocyte Esterase NEGATIVE, Ur Microscopic Review NOT INDICATED, Urine Culture Comments NOT INDICATED 01/17/21 19:05: Nasal Adenovirus (PCR) NOT DETECTED, Nasal B. parapertussis DNA (PCR) NOT DETECTED, Nasal Coronavir 229E PCR NOT DETECTED, Nasal Coronavir HKU1 PCR NOT DETECTED, Nasal Coronavir NL63 PCR NOT DETECTED, Nasal Coronavir OC43 PCR NOT DETECTED, Nasal Enterovir/Rhinovir PCR NOT DETECTED, Nasal Influenza B PCR NOT DETECTED, Nasal Influenza A PCR NOT DETECTED, Nasal Parainfluen 1 PCR NOT DETECTED, Nasal Parainfluen 2 PCR NOT DETECTED, Nasal Parainfluen 3 PCR NOT DETECTED, Nasal Parainfluen 4 PCR NOT DETECTED, Nasal RSV (PCR) NOT DETECTED, Nasal B.pertussis DNA PCR NOT DETECTED, Nasal C.pneumoniae (PCR) NOT DETECTED, Paul Human Metapneumo PCR NOT DETECTED, Nasal M.pneumoniae (PCR) NOT DETECTED, Nasal SARS-CoV-2 (PCR) NOT DETECTED 01/17/21 17:01: Lactic Acid 1.4 01/17/21 16:53: C-Reactive Protein 3.8 H 01/17/21 16:53: ESR 25 H 01/17/21 16:53: Sodium 137, Potassium 3.5, Chloride 98 L, Carbon Dioxide 27, Anion Gap 12.0, BUN 6, Creatinine 0.7, Estimated GFR (MDRD) 133, Glucose 98, Calcium 9.4, Total Bilirubin 1.4 H, AST 25, ALT 29, Alkaline Phosphatase 74, Total Protein 8.1, Albumin 4.2, Globulin 3.9, Albumin/Globulin Ratio 1.1, Lipase 23 01/17/21 16:53: PT 14.3 H, INR 1.3 H, APTT 30.1 01/17/21 16:53: WBC 11.2 H, RBC 4.68 L, Hgb 14.1, Hct 41.4 L, MCV 88.5, MCH 30.1, MCHC 34.1, RDW 11.9 L, Plt Count 247, MPV 9.2, Neut # (Auto) 7.9 H, Lymph # (Auto) 2.0, [place] # (Auto) 0.9, Eos # (Auto) 0.2, Baso # (Auto) 0.0, Absolute Nucleated RBC 0.00, Nucleated RBC % 0.0 - Diagnostic Imaging Results Diagnostic Imaging Results: negative: Read independently (Normal bone and joint structure right elbow) - Diagnosis Diagnosis: Septic olecranon bursitis right elbow - Plan Plan: I would switch him to a cephalosporin antibiotic. I do not see any reason for vancomycin unless his cultures come back methicillin resistant. I do not see any need for surgical intervention at this time. I would do local dressing changes daily. I suspect he could be discharged to home within the next day and be followed as an outpatient in the orthopedic clinic. I would recommend that he be seen next Friday or Friday in orthopedic clinic and discharged on oral antibiotic when appropriate. He is obviously improving and I suspect he will continue to improve.
[2021-01-19] MEDS: VANCOMYCIN INJ 1 GM, VANCOMYCIN INJ 250 MG in SODIUM CHLORIDE 0.9% 250 ML IV SCH (04:36)
[2021-01-19] MEDS: SODIUM CHLORIDE FLUSH 0.9% 10 ML SYRINGE IVP SCH (04:37)
[2021-01-19 04:44] LABS: BASOPHILS % (AUTO) 0.4 %; EOSINOPHILS # (AUTO) 0.7 10^3/uL (0.0-0.7); EOSINOPHILS % (AUTO) 7.9 %; HCT - HEMATOCRIT 41.2 % (42.0-52.0); HGB - HEMOGLOBIN 13.4 g/dL (14.0-18.0); LYMPHOCYTES # (AUTO) 3.1 10^3/uL (1.5-3.5); LYMPHOCYTES % (AUTO) 34.1 %; MEAN CORPUSCULAR HEMOGLOBIN 29.6 pg (27.0-31.0); MEAN CORPUSCULAR HGB CONC 32.5 g/dL (32.0-36.0); MEAN CORPUSCULAR VOLUME 90.9 fL (80.0-94.0); MONOCYTES # (AUTO) 1.1 10^3/uL (0.0-1.0); NEUTROPHILS # (AUTO) 4.1 10^3/uL (1.5-6.6); NEUTROPHILS % (AUTO) 45.3 %; PLT - PLATELET COUNT 242 10^3/uL (130-450); RED BLOOD COUNT 4.53 10^6/uL (4.70-6.10); RED CELL DISTRIBUTION WIDTH 11.9 % (12.0-15.0)
[2021-01-19 05:01] LABS: CREATININE 0.6 mg/dL (0.6-1.2); CRP - C-REACTIVE PROTEIN 6.9 mg/dL (0-1.0); POTASSIUM 4.2 mmol/L (3.5-5.0)
--- NOTE | 2021-01-19 10:05 | Discharge Plan ---
Discharge Plan Problem Reviewed?: Yes Disposition: Home, Self Care Condition: Stable Prescriptions: Doxycycline Hyclate 100 mg PO BID #10 tab Diet: Regular Activity Restrictions: Activity as Tolerated Shower Restrictions: No (fall precaution) Instruction Topics: Doxycycline tablets or capsules, Doxylamine tablets, Bursitis, Sepsis Health Concerns: fever, septic olecranon bursitis of right elbow Plan of Treatment: Your fever is resolved now. your blood culture is negative for bacteremia. The sensitivity study of Your drainage culture will show on tomorrow. You are prescribed Doxycycline antibiotics for d/c to home. you really want to be d/c today and declined to have any more IV antibiotics. You may followup with Dr. Oconnor, orthopedics, next week Friday or Friday in his orthopedic clinic. You may followup with your PCP in one or two weeks. Care Goals: stabilization and improvement/resolve of your medical conditions Assessment: discussed the care plan with you, answered your questions, you understood. Additional Instructions or Follow Up instructions: You may followup with Dr. Oconnor, orthopedics, next week Friday or Friday in his orthopedic clinic. You may followup with your PCP in one or two weeks. Should your symptoms return or worsen, you may present ER or call 911 for help. No Smoking: If you smoke, Please STOP! Call for help.
--- NOTE | 2021-01-19 10:24 | DISCHARGE SUMMARY ---
"Discharge Summary Admit Date: 01/17/21 Discharge Date: 01/19/21 Discharging Provider: Alon Dodd Condition at Discharge: Stable Discharge Disposition: 01 Home, Self Care Discharge Facility Name: home - DIAGNOSES Discharge Diagnoses with Status of Each Condition: (1) Septic olecranon bursitis of right elbow Patient has no more fever, blood culture is negative, WBC become normal range. Patient requested discharge on today, he refused any more intravenous treatment. Patient was told he had drainage culture sensitivity study which will show on tomorrow, and already show Staph aureus. Patient is prescribed antibiotics for d/c. pt may follow-up with orthopedic surgeon on next Friday or Friday (2) Adenopathy resolved. pt denies any more adenopathy or swollen Lymph nodules today. CAT scan of the chest on yesterday show single large reactive lymph nodes in left axilla area which likely reactive to pt's recent HSV or CMV infection which test is pending. pt denies night sweating, fever, loss of weight, loss of appetite. (3) Anxiety phobia about needles. educate pt for prevention of needle phobia (4) Engages in vaping advise pt quit - HPI History of Present Illness: refer from Dr. Whitt's HPI on 01/17/21 The patient presented to the emergency room today because of severe, throbbing, hot right elbow pain. It was coming up the arm and radiated across his right chest. But he tells me that for the last few weeks he has been plagued by another problem that bothers him more. He says that approximately 5 to 6 weeks ago he started having severe chills and fever. It would wake him up at 2 or 3 in the morning with cold sweats that were soaking the bed and would have to go soak in a hot tub to warm up and to stop shaking. 4 hours in the day his entire body would hurt with joint pain. There is no joint effusions or swelling. He always has earwax in his ears and it was associated with occasional right ear pain. No antecedent surgical procedures, dental procedures, illnesses. He is sexually active with his first partner, his , since August of this year. She has HSV-2 but no active infection that he is aware of. He denies sore throat, eustachian tube dysfunction, chest pain. The only time he felt achiness was when he tried to swallow. Then he would feel the lymphadenopathy in his throat come up and down. Because he has had his tonsils taken out, he always feels like he has enlarged submandibular glands. Those were much larger than usual.. He vapes and has an occasional dry cough. No hemoptysis. No shortness of breath. No edema. No palpitations. He has had no weight changes with this even though appetite was diminished. He had no abdominal pain, diarrhea, or change in bowel habits. No urgency, frequency, d ysuria, hematuria or hematospermia. No inguinal pain, groin pain or testicular pain. After a week or so he realized that every time he put his left arm down against his body, his left axilla hurt. So on self examination of his axilla, he felt a ball of lymph nodes that were tender. He then realized that he had tender lymph nodes in the supraclavicular fossa, left lateral neck. He does have cats. But he says that none of them have scratched his hands and he had no left hand or left arm open lesions during this time. 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 He has had no recent travel. He tried to see the [employer] [facility] medical providers for work-up and they checked him for Covid. He was exasperated because he knew his symptoms were not of Covid. But once he was Covid negative they stopped doing a work-up. He thinks that some of the symptoms have diminished in intensity and severity over the last week. But yesterday he developed swelling of his right olecranon bursa. He was putting his arm down on a desk at work. The pain then developed into a large swollen elbow joint that was red, hot, and he started having a recurrence of his fever. So he came to the emergency room this morning where he had it drained by Dr. Sapp. No fluid analysis was sent. He had immediate relief of pain and pressure. Was sent home on Keflex. But when he went back nayely e, the fevers became of higher intensity, started developing body aches and chills. The right elbow was getting swollen again. It was a throbbing pulsating pain. Anything that touched it was agonizing. He admits that he is terrified of needles. Just having the experience this morning of having the joint drained, and an IV placed, and having blood draws has been a horrifying experience for him. He knows he is being ridiculous and should be tougher but he finds all of this very difficult to go through. He says that he wants to apologize to the emergency room physician this morning because he was literally crying when they were trying to drain the joint. With Dr. Phillip's examination of his second visit in the emergency room, temperature was 102.7. Heart rate 120. Respirations 20. Blood pressure 123/82. 98% on room air. He had a swollen right elbow but otherwise unremarkable exam. White cell count was 11,000 this morning and is 11,000 this afternoon. Sedimentation rate is 25. Lactic acid 1.4. INR is slightly elevated at 1.3. Electrolytes and liver enzymes are normal except for total bili of 1.4. The elbow film has no fractures or dislocations. No suspicious bony lesions. There is no elbow joint effusion. No suspicious soft tissue calcifications. We are now admitting him for olecranon bursitis with possible joint infection. Orthopedics has been called by the emergency room provider and will be seeing the patient tomorrow morning in consultation. - CONSULTS | PROCEDURES Consultations: Dr. Oconnor Procedures: no procedure - HOSPITAL COURSE Hospital Course: Patient was admitted for fever, septic olecranon bursitis of right elbow. After the patient was treated with intravenous antibiotics, patient has no more fever, WBC become normal range, Blood culture is negative for bacteremia. the drainage culture is pending, patient requested discharge today and refused any more intravenous treatment. Patient is prescribed antibiotics for discharge. Patient was discharged at hemodynamically stable condition - ALLERGIES Allergies/Adverse Reactions: Allergies Allergy/AdvReac Type Severity Reaction Status Date / Time No Known Drug Allergies Allergy Verified 01/17/21 16:31 - MEDICATIONS Home Medications: Ambulatory Orders Medication Instructions Recorded Confirmed Multivitamin [Theragran] 1 each PO DAILY 01/18/21 01/18/21 diphenhydrAMINE [Benadryl] 25 mg PO BID PRN 01/18/21 01/18/21 Doxycycline Hyclate 100 mg PO BID #10 tab 01/19/21 - PHYSICAL EXAM AT DISCHARGE General Appearance: positive: No acute distress, Alert. negative: Lethargic Eyes Bilateral: positive: Normal inspection, PERRL, No lid inflammation ENT: positive: ENT inspection nml, No signs of dehydration. negative: Purulent nasal drainage Neck: positive: Nml inspection, Trachea midline. negative: Thyromegaly, Tracheal deviation Respiratory: positive: Chest non-tender, No respiratory distress, Breath sounds nml. negative: Wheezes, Rales Cardiovascular: positive: Regular rate & rhythm, No murmur. negative: Tachycardia, Bradycardia, Systolic murmur, Diastolic murmur Peripheral Pulses: positive: 2+ Abdomen: positive: Non-tender, Nml bowel sounds, No distention. negative: Tenderness Back: positive: Nml inspection Skin: positive: Color nml, Warm, Dry. negative: Cyanosis Extremities: positive: Non-tender, Full ROM, Other (right elbow was covered by dressing done by orthopedics. pt has normal and intact distal right upper extremity neurovascular exam. ). negative: Calf tenderness Neurologic/Psychiatric: positive: Oriented x3, Motor nml, Sensation nml, Mood/affect nml. negative: Weakness, Sensory loss, Facial droop, Slurred/abnml speech, Depressed mood/affect - LABS Result Diagrams: 01/19/21 04:35 01/19/21 04:35 - FOLLOW UP Follow Up: Your fever is resolved now. your blood culture is negative for bacteremia. The sensitivity study of Your drainage culture will show on tomorrow. You are prescribed Doxycycline antibiotics for d/c to home. you really want to be d/c today and declined to have any more IV antibiotics. You may followup with amisha Ahn, next week Friday or Friday in his orthopedic clinic. You may followup with your PCP in one or two weeks. You may followup with amisha Ahn, next week Friday or Friday in his orthopedic clinic. You may followup with your PCP in one or two weeks. Should your symptoms return or worsen, you may present ER or call 911 for help. - TIME SPENT Time Spent in Discharge (Minutes): 30"
[2021-01-19 10:48] VITALS: BP 108/69
[2021-01-20 18:26] LABS: HSV 1 DNA NOT DETECTED; HSV 2 DNA NOT DETECTED; SOURCE ORAL
[2021-01-22 10:15] LABS: SOURCE WHOLE BLOOD
[2021-01-23 12:53] LABS: PATHOLOGIST SLIDE COMMENTS SEE SEPARATE REPORT
== END 2021-01-19 11:20 | disposition home or self-care (01) ==
LOC: ED 16:11 → MS2 18:29
PROVIDERS: ADMIT Specialist; ATTEND Nurse Practitioner Gerontology
DX: M71.121 Other infective bursitis, right elbow (principal); R59.0 Localized enlarged lymph nodes; F40.232 Fear of other medical care; F17.290 Nicotine dependence, other tobacco product, uncomplicated; Z20.822 Contact with and (suspected) exposure to COVID-19
CPT/HCPCS: 0202U; 23931; 36415; 71250; 73070; 80048; 80053; 81003; 83605; 83690; 85025; 85610; 85651; 85730; 86140; 86308; 86665; 87040; 87070; 87181; 87205; 87497; 87529; 96365; 96366; 96375; 99285; A9270; G0378; J1170; J3370; 80202; 81001; 87086

== ENCOUNTER 2021-09-07 14:27 | Emergency (ER) | payer OTHER ==
[2021-09-07 15:17] LABS: BILIRUBIN,URINE NEGATIVE (NEGATIVE); GLUCOSE, URINE (UA) NEGATIVE (NEGATIVE); KETONES,URINE (UA) NEGATIVE (NEGATIVE); LEUKOCYTE ESTERASE, URINE NEGATIVE (NEGATIVE); NITRITE,URINE NEGATIVE (NEGATIVE); OCCULT BLOOD,URINE NEGATIVE (NEGATIVE); PROTEIN,URINE NEGATIVE (NEGATIVE); UROBILINOGEN,URINE 0.2 (NORMAL) E.U./dL (NORMAL)
[2021-09-07 15:18] LABS: CLARITY,URINE CLEAR (CLEAR)
[2021-09-07] MEDS ORDERED: cefTRIAXone 1 GM VIAL IM STA (16:08)
[2021-09-07] MEDS ORDERED: lidocaine 1% 20 ML MDV SUBQ STA (16:12)
--- NOTE | 2021-09-07 16:19 | ED Physician Documentation ---
History of Present Illness - Stated complaint Stated Complaint: MALE - Chief complaint Chief Complaint: UTI - History obtained from History obtained from: Patient - History of Present Illness Timing: Today Pain level max: 0 Pain level now: 0 - Additonal information Additional information: 30-year-old male presents to the emergency department stating that he has white discharge from his urethral meatus. Pain burning with urination. He recently found out that his ex-girlfriend was cheating on him. No testicular pain. Worse with urination, nothing makes it better. Concerned about STI. Review of Systems Constitutional: denies: Fever, Chills GI: denies: Vomiting, Diarrhea Skin: denies: Rash Musculoskeletal: denies: Neck pain, Back pain Neurologic: denies: Headache PD PAST MEDICAL HISTORY - Past Medical History Past Medical History: Yes Cardiovascular: None Respiratory: None Neuro: None Endocrine/Autoimmune: None GI: None : None HEENT: None Psych: None Musculoskeletal: None Derm: None - Past Surgical History Past Surgical History: Yes General: Appendectomy HEENT: Tonsil/Adenoidectomy - Present Medications Home Medications: Ambulatory Orders Medication Instructions Recorded Confirmed Multivitamin [Theragran] 1 each PO DAILY 01/18/21 01/18/21 diphenhydrAMINE [Benadryl] 25 mg PO BID PRN 01/18/21 01/18/21 Doxycycline Hyclate 100 mg PO BID #10 tab 01/19/21 Doxycycline Monohydrate 100 mg PO BID #28 cap 09/07/21 - Allergies Allergies/Adverse Reactions: Allergies Allergy/AdvReac Type Severity Reaction Status Date / Time No Known Drug Allergies Allergy Verified 09/07/21 14:42 - Social History Does the pt smoke?: No Smoking Status: Never smoker Does the pt drink ETOH?: No Does the pt have substance abuse?: No - Immunizations Immunizations are current?: Yes - POLST Patient has POLST: No POLST Status: Full Code PD ED PE NORMAL - Vitals Vital signs reviewed: Yes - General General: Alert and oriented X 3, No acute distress - HEENT HEENT: Moist mucous membranes - Neck Neck: Supple, no meningeal sign - Cardiac Cardiac: RRR - Respiratory Respiratory: No respiratory distress, Clear bilaterally - Abdomen Abdomen: Soft, Non tender, Non distended - Male Male : Other (White discharge from the urethral meatus. No testicular swelling or tenderness.) - Derm Derm: Warm and dry - Neuro Neuro: Alert and oriented X 3 - Psych Psych: Normal mood, Normal affect Results - Vitals Vitals: Vital Signs - 24 hr 09/07/21 09/07/21 14:38 16:45 Temperature 36.1 C L 36.4 C L Heart Rate 87 76 Respiratory 16 16 Rate Blood Pressure 136/77 H 121/83 H O2 Saturation 100 100 Oxygen O2 Source Room air - Labs Labs: Laboratory Tests 09/07/21 14:52 Urine Color YELLOW Urine Clarity CLEAR Urine pH 6.0 Ur Specific Donie 1.025 Urine Protein NEGATIVE Urine Glucose (UA) NEGATIVE Urine Ketones NEGATIVE Urine Occult Blood NEGATIVE Urine Nitrite NEGATIVE Urine Bilirubin NEGATIVE Urine Urobilinogen 0.2 (NORMAL) Ur Leukocyte Esterase NEGATIVE Ur Microscopic Review NOT INDICATED Urine Culture Comments NOT INDICATED PD MEDICAL DECISION MAKING - ED course Complexity details: considered differential, d/w patient ED course: 30-year-old male with likely gonorrhea or chlamydia. Testing was sent for this. He was given Rocephin and doxycycline here. Informed him that his partners will need to be tested and treated as well. We will have him follow-up with his doctor for full STD testing. Including HIV testing. Patient counseled regarding signs and symptoms for which I believe and urgent re-evaluation would be necessary. Patient with good understanding of and agreement to plan and is comfortable going home at this time This document was made in part using voice recognition software. While efforts are made to proofread this document, sound alike and grammatical errors may occur. Departure - Departure Disposition: 01 Home, Self Care Clinical Impression: Sexually transmitted disease Condition: Good Instructions: ED STD Male Treated Follow-Up: your,doctor as needed [Other] Prescriptions: Doxycycline Monohydrate 100 mg PO BID #28 cap Comments: Take all antibiotics until gone. Your prescription was sent to [email or web address] in [place]. Any sexual partners will need to be tested and treated as well. Your confirmatory test should be back later today or tomorrow. Discharge Date/Time: 09/07/21 16:48
[2021-09-07 16:45] VITALS: BP 121/83
[2021-09-07 23:00] LABS: CHLAMYDIA TRACHOMATIS DNA NEGATIVE (NEGATIVE)
[2021-09-07 23:02] LABS: NEISSERIA GONORRHOEAE DNA POSITIVE (NEGATIVE)
== END 2021-09-07 16:48 | disposition home or self-care (01) ==
LOC: ED 14:27
DX: A64 Unspecified sexually transmitted disease (principal)
CPT/HCPCS: 81001; 81003; 87086; 87491; 87591; 87661; 96372; 99282; 99283

== ENCOUNTER 2021-12-26 15:01 | Outpatient (CLI) | payer OTHER ==
[2021-12-26 23:18] LABS: CHLAMYDIA TRACHOMATIS DNA NEGATIVE (NEGATIVE); NEISSERIA GONORRHOEAE DNA NEGATIVE (NEGATIVE)
== END 2021-12-26 15:02 | disposition home or self-care (01) ==
LOC: LAB.R 15:01
PROVIDERS: ATTEND Registered Nurse
DX: A56.2 Chlamydial infection of genitourinary tract, unspecified (principal)
CPT/HCPCS: 87086; 87491; 87591; 87661